=== PATIENT | female | born 1930 | race Caucasian/White ===

== ENCOUNTER 2016-06-03 19:53 | Emergency (ER) | payer OTHER ==
[2016-06-03 20:20] VITALS: BP 157/72; PULSE 84; TEMP 98.1; BMI 26.2
[2016-06-03] MEDS ORDERED: ACETAMINOPHEN 325 MG TABLET (FP) PO ONE (21:20)
--- NOTE | 2016-06-03 21:23 | PDOC ---
History of Present Illness - General Chief Complaint: Back Pain Stated Complaint: FALL/INJURY Time Seen by Provider: 06/03/16 20:58 History Source: Patient Exam Limitations: No Limitations - History of Present Illness Initial Comments: 06/03/16 21:25 My chief complaint: Right upper back pain, right hip pain fall in bathroom History of present illness: Patient is an 86-year-old male here with her daughter and granddaughter with a history of hypertension hyperlipidemia, non- insulin-dependent diabetes, and dysuria chronic patient was in the bathtub today and fell as she was trying to wash her foot hitting her right hip area and right upper back. Patient is complaining of pain to right hip pelvic area with raised tender area noted and right upper back pain with raised tender area noted over scapular and right upper rib area. Patient did not have hit her head there was no loss of consciousness. Patient is ambulating however patient complaining of pain in right hip area with ambulation. Patient does not have any difficulty breathing. Patient denies any upper extremity injury or any difficulty breathing. Patient is not on blood thinners except for one baby aspirin a day. Patient did not take anything for pain prior to arrival. She denies any radiation of pain down the legs or any saddle anesthesia or numbness of legs or any incontinency. Occurred: reports: this morning Severity: reports: moderate Pain Location: reports: back (rt. upper back/ rt. posterior ribs ), pelvis (rt. hipe) Method of Injury: Yes: fall (in bath tub this morning (did not hit her head)_) Modifying Factors: improves with: None Loss of Consciousness: no loss of consciousness Associated Symptoms (Fall): other (rt. upper back scapular/ posterior rib pain, rt. hip/pelvic pain) Past History - Past Medical History Allergies/Adverse Reactions: Allergies Allergy/AdvReac Type Severity Reaction Status Date / Time No Known Allergies Allergy Verified 06/03/16 20:20 Home Medications: Ambulatory Orders Amlodipine Besylate [Norvasc -] 5 mg PO DAILY 12/10/13 Hydrochlorothiazide [Hctz -] 25 mg PO DAILY 12/10/13 Lisinopril [Prinivil] 20 mg PO DAILY 12/10/13 Metformin HCl [Metformin HCl ER] 500 mg PO DAILY 12/10/13 Ranitidine [Zantac -] 150 mg PO DAILY 12/10/13 Aspirin [ASA -] 81 mg PO DAILY 06/03/16 Gabapentin 300 mg PO ASDIR 06/03/16 Linaclotide [Linzess] 145 mcg PO DAILY 06/03/16 Lisinopril [Prinivil] 20 mg PO DAILY 06/03/16 Cardiac Disorders: (murmur, aortic insufficiency) Diabetes: Yes Disorders: Yes (dysuria) HTN: Yes Hypercholesterolemia: Yes Lung CA: (mild pulmonary htn) - Immunization History Immunization Up to Date: Yes - Psycho/Social/Smoking Cessation Hx Anxiety: No Suicidal Ideation: No Smoking History: Never smoked Have you smoked in the past 12 months: No Information on smoking cessation initiated: No Hx Alcohol Use: No Drug/Substance Use Hx: No Substance Use Type: None Review of Systems - Review of Systems Able to Perform ROS?: Yes Constitutional: No: Symptoms Reported HEENTM: No: Symptoms Reported Respiratory: No: Symptoms reported Cardiac (ROS): No: Symptoms Reported ABD/GI: No: Symptoms Reported : No: Symptoms Reported Musculoskeletal: Yes: Back Pain (upper rt. back over scapular, posterior rt. upper ribs), Joint Pain (rt. hip/pelvis), Joint Swelling (rt. upper back, rt. lateral hip ) Integumentary: No: Symptoms Reported *Physical Exam - Vital Signs Last Vital Signs Temp Pulse Resp BP Pulse Ox 98.1 F 84 18 157/72 98 06/03/16 20:17 06/03/16 20:17 06/03/16 20:17 06/03/16 20:17 06/03/16 20:17 - Physical Exam General Appearance: Yes: Appropriately Dressed Neck: negative: Tender, Lymphadenopathy (R), Lymphadenopathy (L), Rigidity, Tender lateral, Tender midline Respiratory/Chest: positive: Lungs Clear, Normal Breath Sounds. negative: Chest Tender, Respiratory Distress Cardiovascular: positive: Regular Rhythm, Regular Rate, S1, S2 Gastrointestinal/Abdominal: positive: Normal Bowel Sounds, Soft, Other (no tenderness of symphysis pubis b/l ). negative: Tender, Organomegaly, Distended , Guarding, Rebound, Tenderness, Hepatomegaly, Spleenomegaly Musculoskeletal: positive: Normal Inspection, Other (rt. posterior scapular/ posterior upper right ribs ). negative: CVA Tenderness, CVA Tenderness (R), CVA Tenderness (L), Vertebral Tenderness Extremity: positive: Normal Capillary Refill, Tender (rt. lateral hip/lateral rt. pelvis), Swelling (rt. upper back , rt. lateral hip ), Other (no shorteniing of rt. leg, no tenderness of symphysis pubis) Integumentary: positive: Normal Color Neurologic: positive: Fully Oriented, Alert, Normal Response, Motor Strength 5/ 5 (upper extremities ), Respond to painful stimul, Responsive. negative: Numbness, Sensory Deficit Medical Decision Making - Medical Decision Making 06/03/16 21:28 Patient is an 86-year-old male here with her daughter and granddaughter with a history of hypertension hyperlipidemia, [id number] diabetes, and dysuria chronic patient was in the bathtub today and fell as she was trying to wash her foot hitting her right hip area and right upper back. Patient is complaining of pain to right hip pelvic area with raised tender area noted and right upper back pain with raised tender area noted over scapular and right upper rib area. Patient did not have hit her head there was no loss of consciousness. Patient is ambulating however patient complaining of pain in right hip area with ambulation. Patient does not have any difficulty breathing. Patient denies any upper extremity injury or any difficulty breathing. Patient is not on blood thinners except for one baby aspirin a day. Patient did not take anything for pain prior to arrival. She denies any radiation of pain down the legs or any saddle anesthesia or numbness of legs or any incontinency. Fall rt. hip/pelvic pain r/o fracture rt. upper back pain over scapular, upper rt. rib area r/o fracture Contusion rt. hip Contusion rt. upper back PLAN: acetaminophen 650 mg po now xray rt. hip/pelvis questionable minimal cortical step off is likely artifactual however correlate clinically with sight pain and if warranted off sectional imaging may be obtained for further evaluation Dr. Gray no pain noted on clinical exam in this area xray rt. scapular no fracture noted per Dr. Gray xray rt. rib series no fracture noted per Dr. Gray follow up with orthopedist for further evaluation 06/03/16 22:46 *DC/Admit/Observation/Transfer Diagnosis at time of Disposition: Contusion of right hip region Fall Qualifiers: Encounter type: initial encounter Qualified Code(s): W19.XXXA - Unspecified fall, initial encounter Contusion, back Qualifiers: Encounter type: initial encounter Laterality: right Qualified Code(s): S20.221A - Contusion of right back wall of thorax, initial encounter Contusion of rib on right side Qualifiers: Encounter type: initial encounter Qualified Code(s): S20.211A - Contusion of right front wall of thorax, initial encounter - Discharge Dispostion Disposition: HOME Condition at time of disposition: Stable - Referrals Referrals: STAFF,NOT ON [Primary Care Provider] - Warren Whitley MD [Staff Physician] - - Patient Instructions Additional Instructions: Continue to apply ice to right hip area thigh area and right upper back every few hours while awake for 15-20 minutes Follow-up with orthopedist within the next couple of days and your primary care provider for further evaluation Return to emergency room if symptoms worsen any difficulty walking or worsening pain or new symptoms develop Take Tylenol as needed as directed by customer acquisition specialist for pain Do not take baths unsupervised Patient and daughter voiced understanding of discharge instructions and all questions were answered
[2016-06-03] MEDS ORDERED: ACETAMINOPHEN 325 MG TABLET (FP) ONE (21:27)
== END 2016-06-03 22:53 | disposition home or self-care (01) ==
LOC: JERFT 19:53
DX: S20.221A Contusion of right back wall of thorax, initial encounter (principal); S20.211A Contusion of right front wall of thorax, initial encounter; S70.01XA Contusion of right hip, initial encounter; W22.8XXA Striking against or struck by other objects, initial encounter; Y93.E1 Activity, personal bathing and showering; Y92.031 Bathroom in apartment as the place of occurrence of the external cause; Y99.8 Other external cause status; I10 Essential (primary) hypertension; E11.9 Type 2 diabetes mellitus without complications; Z79.84 Long term (current) use of oral hypoglycemic drugs; E78.6 Lipoprotein deficiency
CPT/HCPCS: 71101-TC-RT; 73010-TC; 73523-TC; 99281-25

== ENCOUNTER 2016-06-27 12:52 | Emergency (ER) | payer OTHER ==
[2016-06-27 12:57] VITALS: TEMP 98.1; BMI 26.2
--- NOTE | 2016-06-27 13:27 | PDOC ---
History of Present Illness - General History Source: Patient, Family Exam Limitations: No Limitations - History of Present Illness Initial Comments: 06/27/16 13:52 The patient is a 86 year old female with a significant past medical history of hypertension, hyperlipidemia, NIDDM, aortic insufficiency, cardiac murmur, and hearing loss, presenting to the Emergency Department with lower extremity edema , cough, and nasal congestion. The patients granddaughter translated for the patient as she is [place]ian speaking. The granddaughter reports that the patient has a nonproductive, dry cough, and itchy, puffy eyes that started one week ago. The grandaughter reports that as of three days ago the patient started experiencing decreased appetite, sore throat, body aches, and urinary frequency in addition to these symptoms. The patient admits to chest pain and back pain when coughing. The patient admits that last night her legs were very swollen, so swollen that she could not define her knee joint. The patients granddaughter admits that she has had intermittent lower extremity edema for about 5 years, though her legs do not normally swell as much as last night. She admits that she elevated her legs throughout the night which resolved the swelling. The patient is not on Lasix. PCP: Dr. Bradley Gilmore The patient denies nausea, vomiting, and diarrhea. Patient denies blurry vision , or visual changes. Patient denies loss of range of motion of extremities. Patient denies dysuria, or hematuria. Patient denies hemoptysis. <Dawn Reyes - Last Filed: 06/27/16 15:24> - General History Source: Patient Exam Limitations: No Limitations <Oliva Baugh - Last Filed: 06/27/16 16:14> - General Chief Complaint: Respiratory Stated Complaint: CONGESTED, COUGH Time Seen by Provider: 06/27/16 13:05 Past History <Dawn Reyes - Last Filed: 06/27/16 15:24> - Past Medical History Cardiac Disorders: Yes (murmur, aortic insufficiency) Diabetes: Yes Disorders: Yes (dysuria) HTN: Yes Hypercholesterolemia: Yes Lung CA: (mild pulmonary htn) - Immunization History Immunization Up to Date: Yes - Psycho/Social/Smoking Cessation Hx Anxiety: No Suicidal Ideation: No Smoking History: Never smoked Have you smoked in the past 12 months: No Hx Alcohol Use: No Drug/Substance Use Hx: No Substance Use Type: None <AmauriOliva - Last Filed: 06/27/16 16:14> - Past Medical History Allergies/Adverse Reactions: Allergies Allergy/AdvReac Type Severity Reaction Status Date / Time No Known Allergies Allergy Verified 06/27/16 12:54 Home Medications: Ambulatory Orders Amlodipine Besylate [Norvasc -] 10 mg PO DAILY 12/10/13 Hydrochlorothiazide [Hctz -] 25 mg PO DAILY 12/10/13 Metformin HCl [Metformin HCl ER] 500 mg PO BID 12/10/13 Ranitidine [Zantac -] 300 mg PO DAILY 12/10/13 Aspirin [ASA -] 81 mg PO DAILY 06/03/16 Gabapentin 300 mg PO ASDIR 06/03/16 Lisinopril [Prinivil] 20 mg PO DAILY 06/03/16 Acetaminophen [Tylenol] 650 mg PO QID PRN 06/27/16 Guaifenesin/Dextromethorphan [Coricidin Hbp Softgel] 1 each PO BID PRN #10 capsule 06/27/16 Loratadine [Claritin -] 10 mg PO DAILY #30 tablet 06/27/16 Review of Systems - Review of Systems Able to Perform ROS?: Yes Comments:: 06/27/16 13:53 GENERAL/CONSTITUTIONAL: No: fever, chills, weakness Present: + decreased appetite HEAD, EYES, EARS, NOSE AND THROAT: No: ear pain, discharge, throat swelling. Present: + itchy, puffy eyes, + nasal congestion, + sore throat CARDIOVASCULAR: No: chest pain, lightheadedness, palpitations, syncope RESPIRATORY: No: shortness of breath, wheezing, hemoptysis, stridor. Present: + cough GASTROINTESTINAL: No: nausea, vomiting, abdominal cramping, diarrhea, rectal bleeding, constipation. GENITOURINARY: No: dysuria, hematuria, urgency, flank pain. Present: + urinary frequency MUSCULOSKELETAL: No: back pain, neck pain, joint pain, muscle pain Present: + lower extremity edema SKIN: No: lesions, pallor, rash or easy bruising. NEUROLOGIC: No: headache, vertigo, paresthesias, weakness ENDOCRINE: No: unexplained weight gain or loss HEMATOLOGIC/LYMPHATIC: No: anemia, easy bleeding, swelling nodes <Dawn Reyes - Last Filed: 06/27/16 15:24> *Physical Exam - Vital Signs Last Vital Signs Temp Pulse Resp BP Pulse Ox 98.1 F 90 18 163/68 97 06/27/16 12:53 06/27/16 12:53 06/27/16 12:53 06/27/16 12:53 06/27/16 12:53 - Physical Exam Comments: 06/27/16 13:54 GENERAL: The patient is in no acute distress. HEAD: Normal with no signs of trauma. EYES: PERRLA, EOMI, sclera anicteric, conjunctiva clear. ENT: Ears normal, nares patent, oropharynx clear without exudates. Moist mucous membranes. NECK: Normal range of motion, supple without lymphadenopathy, JVD, or masses. LUNGS: Breath sounds equal, clear to auscultation bilaterally. No wheezes, and no crackles. HEART: Regular rate and rhythm, normal S1 and S2 without murmur, rub or gallop. ABDOMEN: Upper abdominal tenderness to palpation. Soft normoactive bowel sounds. No guarding, no rebound. EXTREMITIES: Pitting edema to sock level left leg, pitting edema to knee on right leg. Normal range of motion. No clubbing or cyanosis. No erythema, or tenderness. NEUROLOGICAL: Cranial nerves II through XII grossly intact. Normal speech. No focal neurological deficits. MUSCULOSKELETAL: Back nontender to palpation, no CVA tenderness SKIN: Warm, Dry, normal turgor, no rashes or lesions noted. <Dawn Reyes - Last Filed: 06/27/16 15:24> - Vital Signs Last Vital Signs Temp Pulse Resp BP Pulse Ox 98.1 F 90 18 163/68 97 06/27/16 12:53 06/27/16 12:53 06/27/16 12:53 06/27/16 12:53 06/27/16 12:53 <Oliva Baugh - Last Filed: 06/27/16 16:14> Heart Score/ECG Review #1 ECG reviewed & interpreted by me at: 14:29 06/27/16 14:29 Twelve-lead EKG was performed and reviewed by me. There is normal sinus rhythm with a normal rate of 85 bpm. The axis is normal. The intervals are normal - pr : 202ms, QRS:92ms, QTc:452ms. There are no ST elevations or depressions. T wave inversions v5, v6, I, aVL. LVH <Oliva Baugh - Last Filed: 06/27/16 16:14> ED Treatment Course - LABORATORY CBC & Chemistry Diagram: 06/27/16 13:40 06/27/16 13:40 - RADIOLOGY Radiograph Interpretation: 06/27/16 15:20 Bilateral lower extremity ultrasound As reviewed by Dr. Luz Loving IMPRESSION: No evidence of DVT in both lower extremities. 06/27/16 15:24 Chest XRay As reviewed by Dr. John Guerrero IMPRESSION: No acute pathology. Weak inspiration. Large heart. <Dawn Reyes - Last Filed: 06/27/16 15:24> - LABORATORY CBC & Chemistry Diagram: 06/27/16 13:40 06/27/16 13:40 - RADIOLOGY Radiology Studies Ordered: Category Date Time Status CHEST X-RAY PORTABLE* [RAD] Stat Radiology 06/27/16 13:06 Ordered <Oliva Baugh - Last Filed: 06/27/16 16:14> Medical Decision Making - Medical Decision Making 06/27/16 13:24 A portion of this note was documented by scribe services under my direction. I have reviewed the details of the note, within reason, and agree with the documentation with the following case summary and management plan written by me. Nursing documentation reviewed and incorporated into medical decision making This pt is an 86 year old female with a significant past medical history of HTN , HLD, NIDDM, Aortic insufficiency who presents to the ER with family due to leg swelling, back pain, congestion, "loud breathing", headache, neck cramping, urinary frequency, abdominal swelling and abdominal pain. Pt daughter brought her to the ER today because she noted leg swelling last night which was worse than prior Pt daughter elevated her legs and this morning, her swelling has greatly improved She has had no fevers She is tolerating liquids, has had decreased po intake She has also had a nonproductive, dry cough, and itchy, puffy eyes that started one week ago. Pt presentation is very non specific On examination: Mild lower extremity edema RRR, murmur appreciated Lungs clear No abd tenderness I will do labs, cxr, lumbar spine x ray, duplex, UA Will re assess 06/27/16 14:09 Laboratory Tests 06/27/16 13:40 WBC 15.8 H Hgb 12.6 Hct 37.8 Plt Count 228 Neutrophils % 46.6 Lymphocytes % 40.1 H 06/27/16 14:23 06/27/16 14:25 06/27/16 15:33 Laboratory Tests 06/27/16 13:40 Sodium 142 Potassium 4.1 Chloride 104 Carbon Dioxide 23 BUN 21 H Creatinine 1.0 Random Glucose 162 H Troponin I < 0.02 B-Natriuretic Peptide 247.78 06/27/16 16:02 Laboratory Tests 06/27/16 06/27/16 13:40 14:23 B-Natriuretic Peptide 247.78 Urine Blood 1+ H Urine Nitrite Negative Ur Leukocyte Esterase Negative CXR: weak inspiration, large heart, lungs clear Duplex: no dvt 06/27/16 16:08 Pt ambulatory to the bathroom with no difficulty No pain Pt daughter requests that we give her something for her congestion Will discharge on Claritin and Coricidin <Oliva Baugh - Last Filed: 06/27/16 16:14> *DC/Admit/Observation/Transfer - Attestations Scribe Attestion: 06/27/16 13:54 Documentation prepared by Dawn Reyes, acting as medical receptionist medical assistant for Oliva Baugh MD/DO. <Dawn Reyes - Last Filed: 06/27/16 15:24> - Discharge Dispostion Admit: No <Oliva Baugh - Last Filed: 06/27/16 16:14> Diagnosis at time of Disposition: Congestion of nasal sinus - Discharge Dispostion Disposition: HOME Condition at time of disposition: Stable - Prescriptions Prescriptions: Loratadine [Claritin -] 10 mg PO DAILY #30 tablet Guaifenesin/Dextromethorphan [Coricidin Hbp Softgel] 1 each PO BID PRN #10 capsule PRN Reason: congestion - Referrals Referrals: STAFF,NOT ON [Primary Care Provider] - - Patient Instructions Printed Discharge Instructions: DI for Nasal Congestion Additional Instructions: Thank you for coming in to the ER today I am sorry that you are feeling congested and had leg swelling Please review your labs, your Xray and your ultrasound You must follow up with your primary care physician in 2 -3 days Return to the ER for any other concerns or complaints
[2016-06-27 13:57] LABS: EOSINOPHIL 4.7 % (0-4.5); MCH 28.9 pg (25.7-33.7); MCHC 33.3 g/dl (32.0-36.0); MEAN PLT VOLUME 7.8 fl (7.5-11.1); NEUTROPHILS 46.6 % (42.8-82.8); PLATELET COUNT 228 K/MM3 (134-434); RDW 13.2 % (11.6-15.6); WHITE BLOOD COUNT 15.8 K/mm3 (4.0-10.0)
[2016-06-27 14:22] LABS: ALBUMIN 3.8 g/dl (3.4-5.0); ANION GAP 15 (8-16); BILIRUBIN,TOTAL 0.4 mg/dL (0.2-1.0); CALCIUM 8.8 mg/dL (8.5-10.1); CO2 23 mmol/L (21-32); COCKROFT - GAULT 41.6755; GLUCOSE,RANDOM 162 mg/dL (74-106); SGOT/AST 21 U/L (15-37); SGPT/ALT 22 U/L (12-78); TOT PROT 8.1 g/dl (6.4-8.2)
[2016-06-27 14:25] LABS: ALK PHOS 90 U/L (45-117); TROPONIN I < 0.02 ng/ml (0.00-0.05)
[2016-06-27 14:39] LABS: AMYLASE 59 U/L (25-115)
[2016-06-27 15:53] LABS: URINE APPEARANCE CLEAR; URINE BILIRUBIN NEGATIVE (NEGATIVE); URINE BLOOD 1+ (NEGATIVE); URINE COLOR STRAW; URINE GLUCOSE (UA) NEGATIVE (NEGATIVE); URINE KETONE NEGATIVE (NEGATIVE); URINE LEUK ESTERASE NEGATIVE (NEGATIVE); URINE NITRITE NEGATIVE (NEGATIVE); URINE PROTEIN NEGATIVE (NEGATIVE); URINE UROBILINOGEN NEGATIVE E.U./dl (0.2-1.0)
[2016-06-27 16:14] LABS: URINE BACTERIA RARE /hpf (NONE SEEN); URINE MUCUS RARE; URINE RBC <1 /hpf (0-3); URINE WBC <1 /hpf (3-5)
[2016-06-27 16:37] VITALS: BP 126/78; PULSE 83
--- NOTE | 2016-06-29 10:46 | EKG ---
Test Reason : Blood Pressure : / mmHG Vent. Rate : 085 BPM Atrial Rate : 085 BPM P-R Int : 202 ms QRS Dur : 092 ms QT Int : 380 ms P-R-T Axes : 085 -14 146 degrees QTc Int : 452 ms NORMAL SINUS RHYTHM VOLTAGE CRITERIA FOR LEFT VENTRICULAR HYPERTROPHY T WAVE ABNORMALITY, CONSIDER LATERAL ISCHEMIA ABNORMAL ECG NO PREVIOUS ECGS AVAILABLE Confirmed by MAGI DENISE MD ([id number]) on 06/29/2016 10:46:14 AM Referred By: Confirmed By:MAGI DENISE MD
== END 2016-06-27 16:37 | disposition home or self-care (01) ==
LOC: JER 12:52
DX: J34.89 Other specified disorders of nose and nasal sinuses (principal); I10 Essential (primary) hypertension; E78.5 Hyperlipidemia, unspecified; E11.9 Type 2 diabetes mellitus without complications; E78.00 Pure hypercholesterolemia, unspecified; E30.0 Delayed puberty; I27.2 Other secondary pulmonary hypertension
CPT/HCPCS: 36415; 71010-TC; 80053; 81003; 81015; 82150; 82550; 83690; 83880; 84484; 85025; 87040; 87086; 87186; 93005; 93010; 93970-TC; 99283-25